=== PATIENT | female | born 1985 | race Two or more races ===

== ENCOUNTER 2021-08-09 06:15 | Inpatient (IN) | payer OTHER ==
[2021-08-09 06:47] VITALS: BMI 35.1
[2021-08-09] MEDS ORDERED: OXYTOCIN 20 UNITS in 0.9% NS 20 UNIT/1,000 ML INFUS.BAG IV ONE (07:59)
[2021-08-09] MEDS ORDERED: morphine SULFATE/PF 1 MG/2 ML (2cc Syringe - QUVA) ONE (08:00)
[2021-08-09] MEDS ORDERED: PHENYLEPHRINE HCL 10 MG/1 ML SINGLE DOSE VIAL ONE (08:00)
[2021-08-09] MEDS ORDERED: ePHEDrine SULFATE 50 MG/1 ML AMPULE ONE (08:00)
[2021-08-09] MEDS ORDERED: ceFAZolin SODIUM 1 GM VIAL ONE (08:21)
[2021-08-09] MEDS ORDERED: OXYTOCIN 10 UNITS/ML VIAL ONE (08:22)
[2021-08-09] MEDS ORDERED: ONDANSETRON 4 MG/2 ML VIAL ONE (08:27)
[2021-08-09] MEDS ORDERED: MIDAZOLAM HCL 2 MG/2 ML SINGLE DOSE VIAL ONE (09:08)
[2021-08-09] MEDS ORDERED: CITRIC ACID/SODIUM CITRATE 30 ML UNIT-DOSE CUP PO ONE (09:34)
[2021-08-09] MEDS ORDERED: ELECTROLYTE-148 SOLN 500 ML IV ONE (09:34)
[2021-08-09] MEDS ORDERED: ELECTROLYTE-148 SOLN 1,000 ML IV SCH (09:45)
[2021-08-09] MEDS ORDERED: SENNOSIDES/DOCUSATE COMBO (SENNA PLUS) TABLET (UD) PO PRN (09:55)
[2021-08-09] MEDS ORDERED: METHYLERGONOVINE MALEATE 0.2 MG/1 ML AMP IM PRN (09:55)
[2021-08-09] MEDS: OXYTOCIN 20 UNITS in 0.9% NS 20 UNIT/1,000 ML INFUS.BAG IV SCH (10:08)
[2021-08-09] MEDS: IBUPROFEN 800 MG/8 ML IJ IVPB PRN ×2 (11:27→23:28)
[2021-08-09] MEDS ORDERED: ONDANSETRON 4 MG/2 ML VIAL IVPUSH PRN (11:47)
[2021-08-09] MEDS ORDERED: oxyCODONE HCL 5 MG TABLET PO PRN ×2 (21:55)
[2021-08-10] MEDS: IBUPROFEN 800 MG/8 ML IJ IVPB PRN (06:33)
[2021-08-10 08:13] LABS: BASO % 0.2 % (0-2.0); EOS % 1.5 % (0-4.5); HEMATOCRIT 35.6 % (32.4-45.2); HEMOGLOBIN 11.8 GM/dL (10.7-15.3); LYMPH % 14.3 % (8-40); MCH 29.9 pg (25.7-33.7); MCHC 33.2 g/dl (32.0-36.0); MEAN CELL VOLUME 89.9 fl (80-96); MONO % 7.3 % (3.8-10.2); NEUT % 76.7 % (42.8-82.8); PLATELET COUNT 179 10^3/uL (134-434); RBC 3.96 M/mm3 (3.60-5.2); RDW 13.4 % (11.6-15.6); WHITE BLOOD COUNT 11.1 K/mm3 (4.0-10.0)
[2021-08-10] MEDS ORDERED: BISACODYL 10 MG SUPP.RECT RC PRN (09:55)
[2021-08-10] MEDS: ACETAMINOPHEN 325 MG TABLET (FP) PO PRN ×3 (12:31→23:41)
[2021-08-10] MEDS: SIMETHICONE 80 MG TAB.CHEW (FP) PO PRN ×4 (12:32→23:41)
[2021-08-10] MEDS: IBUPROFEN 600 MG TABLET (FP) PO PRN (15:33)
[2021-08-10] MEDS: OXYTOCIN 20 UNITS in 0.9% NS 20 UNIT/1,000 ML INFUS.BAG IV SCH (20:14)
[2021-08-11] MEDS: IBUPROFEN 600 MG TABLET (FP) PO PRN ×4 (03:57→22:07)
[2021-08-11] MEDS: SIMETHICONE 80 MG TAB.CHEW (FP) PO PRN ×4 (03:57→22:07)
[2021-08-11] MEDS: ACETAMINOPHEN 325 MG TABLET (FP) PO PRN ×2 (14:08→23:36)
[2021-08-12] MEDS: IBUPROFEN 600 MG TABLET (FP) PO PRN ×2 (03:34→08:08)
[2021-08-12] MEDS: SIMETHICONE 80 MG TAB.CHEW (FP) PO PRN ×2 (03:34→08:08)
[2021-08-12] MEDS: ACETAMINOPHEN 325 MG TABLET (FP) PO PRN (05:01)
[2021-08-12 09:34] VITALS: BP 128/89; PULSE 82; TEMP 98.1
[2021-08-12] MEDS ORDERED: LIDOCAINE 1%/EPI 1:100000 (20 ML MULTI DOSE VIAL) ONE (12:41)
[2021-08-12] MEDS ORDERED: LIDOCAINE HCL 1% EPINEPHRINE 1:200,000 30 ML VIAL (PF) ONE (12:42)
== END 2021-08-12 13:15 | disposition home or self-care (01) | DRG 540 ==
LOC: JLDR 06:15 → J3W 10:40
PROVIDERS: ADMIT Obstetrics & Gynecology; ATTEND Obstetrics & Gynecology
PROC: 10D00Z1 Extraction of Products of Conception, Low, Open Approach (ICD-10-PCS; principal; 2021-08-09)
DX: O32.2XX0 Maternal care for transverse and oblique lie, not applicable or unspecified (principal); Z3A.39 39 weeks gestation of pregnancy; Z37.0 Single live birth
CPT/HCPCS: 36415; 80053; 85025; 85610; 85730; 86780; 86850; 86900; 86901; 88307-TC; C9803; U0003; U0005